=== PATIENT | male | born 1970 | race Caucasian/White ===

== ENCOUNTER 2017-05-24 14:52 | Emergency (ER) | payer MEDICARE, SELFPAY ==
[~2017-05-24] VITALS: Ht 175.3 cm; Wt 79.5 kg
[2017-05-24] MEDS ORDERED: ANTIPSYCHOTIC PO (15:04)
[2017-05-24] MEDS ORDERED: HYDROCODONE/ACETAMINOPHEN 5-325 MG TABLET PO ONE (16:30)
[2017-05-24 17:54] VITALS: BP 107/68
[2017-05-25] MEDS ORDERED: SERT100T12 PO (06:15)
[2017-05-25] MEDS ORDERED: QUET200T29 PO (06:15)
[2017-05-25] MEDS ORDERED: DIVA500T35 PO (06:17)
== END 2017-05-24 18:25 | disposition home or self-care (01) ==
LOC: EMS 14:54
DX: S43.402A Unspecified sprain of left shoulder joint, initial encounter (principal); J45.909 Unspecified asthma, uncomplicated; F17.210 Nicotine dependence, cigarettes, uncomplicated; Y04.2XXA Assault by strike against or bumped into by another person, initial encounter; Y93.89 Activity, other specified; Y92.89 Other specified places as the place of occurrence of the external cause; Y99.8 Other external cause status
CPT/HCPCS: 99284

== ENCOUNTER 2017-05-25 05:54 | Inpatient (IN) | payer MEDICARE ==
[~2017-05-25] VITALS: Ht 175.3 cm; Wt 74.5 kg
[~2017-05-25 05:54] MED LIST: ANTIPSYCHOTIC PO
[2017-05-25] MEDS ORDERED: QUET200T29 PO (06:15)
[2017-05-25] MEDS ORDERED: SERT100T12 PO (06:15)
[2017-05-25] MEDS ORDERED: DIVA500T35 PO (06:17)
[2017-05-25 06:59] LABS: BASOPHILS % (AUTO) 0.5 % (0.0-2.0); EOSINOPHILS % (AUTO) 4.2 % (1.0-6.0); HEMATOCRIT 42.3 % (41-53); HEMOGLOBIN 14.4 g/dL (13.5-17.5); LYMPHOCYTES # (AUTO) 2.6 K/uL (1.0-4.8); LYMPHOCYTES % (AUTO) 31.4 % (22.0-44.0); MEAN CORPUSCULAR HEMOGLOBIN 31.1 pg (26.0-34.0); MEAN CORPUSCULAR VOLUME 92 fL (80-100); MONOCYTES # (AUTO) 0.6 K/uL (0.1-1.0); MONOCYTES % (AUTO) 6.9 % (2.0-9.0); NEUTROPHILS # (AUTO) 4.7 K/uL (1.8-7.7); PLATELET COUNT (AUTO) 232 K/uL (150-450); RED BLOOD CELL COUNT(AUTO) 4.61 MIL/uL (4.50-5.90); RED CELL DISTRIBUTION WIDTH 13.1 % (11.5-14.5); WHITE BLOOD COUNT (AUTO) 8.3 K/uL (4.5-11.0)
[2017-05-25 07:14] LABS: ANION GAP 7 mmol/L (8-16); CARBON DIOXIDE 29 mmol/L (22-29); CHLORIDE 108 mmol/L (98-107); CREATININE 0.98 mg/dL (0.60-1.30); GLOMERULAR FILTR. RATE CALC > 60 mL/min (>60); POTASSIUM 4.5 mmol/L (3.5-5.1); SODIUM SERUM 144 mmol/L (136-145); UREA NITROGEN, BLOOD 18 mg/dL (7-18)
[2017-05-25 07:21] LABS: ALANINE AMINOTRANSFERASE 22 U/L (12-78); ALBUMIN 4.1 g/dL (3.4-5.0); ASPARTATE AMINOTRANSFERASE 12 U/L (15-37); BILIRUBIN,TOTAL 0.7 mg/dL (0.1-1.0); TOTAL PROTEIN, SERUM 7.3 g/dL (6.4-8.2); VALPROIC ACID < 3 mcg/mL (50-100)
[2017-05-25] MEDS ORDERED: ZOLPIDEM TARTRATE 10 MG TABLET PO PRN (10:00)
[2017-05-25 15:06] VITALS: BP 111/59
[2017-05-25 16:00] VITALS: BP 100/55
[2017-05-25 16:14] VITALS: BP 100/55
[2017-05-25] MEDS ORDERED: DENTURE ADHESIVE 68 GM CREAM DT PRN (20:00)
[2017-05-25 21:10] VITALS: BP 102/55
[2017-05-26] VITALS (7 sets, daily range): BP systolic 96–107; BP diastolic 57–65
[2017-05-26 08:53] LABS: CHOL/HDL RATIO 3.9 (4.2-7.3)
[2017-05-26] MEDS ORDERED: BACITRACIN 28.4 GM OINTMENT TP PRN (09:00)
[2017-05-26] MEDS ORDERED: LOPERAMIDE HCL 2 MG CAPSULE PO PRN (09:00)
[2017-05-26] MEDS ORDERED: PETROLATUM,WHITE 71 GM JELLY TP PRN (09:00)
[2017-05-26] MEDS ORDERED: ACETAMINOPHEN 325 MG TABLET PO PRN (09:00)
[2017-05-26] MEDS ORDERED: ALBUTEROL SULFATE HFA 90 MCG/PUFF 8 GM INHALER IH PRN (09:00)
[2017-05-26] MEDS ORDERED: ONDANSETRON HCL 4 MG TABLET PO PRN (09:00)
[2017-05-26] MEDS ORDERED: MAGNESIUM HYDROXIDE SUSPENSION 30 ML UDCUP PO PRN (09:00)
[2017-05-26] MEDS ORDERED: CloNIDine HCL 0.1 MG TABLET PO PRN (09:00)
[2017-05-26] MEDS ORDERED: MAG HYDROX/AL HYDROX/SIMETH ES 30 ML SUSPENSION UDCUP PO PRN (09:00)
[2017-05-26] MEDS ORDERED: BENZOCAINE/MENTHOL LOZENGE MM PRN (09:00)
[2017-05-26] MEDS: DIVALPROEX SODIUM 500 MG DR TABLET PO SCH (17:01)
[2017-05-26] MEDS: QUEtiapine FUMARATE 200 MG TABLET PO SCH (20:20)
[2017-05-27] VITALS (7 sets, daily range): BP systolic 99–106; BP diastolic 61–70
[2017-05-27] MEDS: DIVALPROEX SODIUM 500 MG DR TABLET PO SCH ×2 (09:14→16:38)
[2017-05-27] MEDS: SERTRALINE HCL 100 MG TABLET PO SCH (09:14)
[2017-05-27] MEDS: LORazepam 2 MG TABLET PO PRN (13:55)
[2017-05-27] MEDS: IBUPROFEN 600 MG TABLET PO PRN (13:55)
[2017-05-27] MEDS: HALOPERIDOL 5 MG TABLET PO PRN (13:55)
[2017-05-27] MEDS: QUEtiapine FUMARATE 200 MG TABLET PO SCH (20:40)
[2017-05-28] VITALS (12 sets, daily range): BP systolic 94–117; BP diastolic 50–71
[2017-05-28] MEDS: DIVALPROEX SODIUM 500 MG DR TABLET PO SCH ×2 (09:15→16:47)
[2017-05-28] MEDS: SERTRALINE HCL 100 MG TABLET PO SCH (09:15)
[2017-05-28] MEDS: HALOPERIDOL 5 MG TABLET PO PRN (13:10)
[2017-05-28] MEDS: LORazepam 2 MG TABLET PO PRN (13:10)
[2017-05-28] MEDS: QUEtiapine FUMARATE 200 MG TABLET PO SCH (20:41)
[2017-05-29 03:05] VITALS: BP 102/68
[2017-05-29 07:14] VITALS: BP 101/62
[2017-05-29 08:00] VITALS: BP 101/55
[2017-05-29 08:17] VITALS: BP 101/55
[2017-05-29] MEDS: DIVALPROEX SODIUM 500 MG DR TABLET PO SCH ×2 (08:43→16:33)
[2017-05-29] MEDS: SERTRALINE HCL 100 MG TABLET PO SCH (08:43)
[2017-05-29 16:19] VITALS: BP 106/66
[2017-05-29] MEDS: QUEtiapine FUMARATE 200 MG TABLET PO SCH (20:04)
[2017-05-29 20:54] VITALS: BP 104/68
[2017-05-29] MEDS: IBUPROFEN 600 MG TABLET PO PRN (20:56)
[2017-05-30 02:00] VITALS: BP 102/3
[2017-05-30 06:00] VITALS: BP 100/60
[2017-05-30] MEDS ORDERED: LORazepam 2 MG/ML VIAL ONE (08:14)
[2017-05-30] MEDS ORDERED: DiphenhydrAMINE HCL 50 MG/ML VIAL ONE (08:14)
[2017-05-30] MEDS ORDERED: HALOPERIDOL LACTATE 5 MG/ML VIAL ONE (08:14)
[2017-05-30] MEDS ORDERED: LORazepam 2 MG/ML VIAL IM ONE (08:15)
[2017-05-30] MEDS ORDERED: HALOPERIDOL LACTATE 5 MG/ML VIAL IM ONE (08:15)
[2017-05-30] MEDS ORDERED: DiphenhydrAMINE HCL 50 MG/ML VIAL IM ONE (08:15)
[2017-05-30 08:35] VITALS: BP 108/60
[2017-05-30] MEDS: SERTRALINE HCL 100 MG TABLET PO SCH (09:13)
[2017-05-30] MEDS: DIVALPROEX SODIUM 500 MG DR TABLET PO SCH ×2 (09:13→16:50)
[2017-05-30 10:24] VITALS: BP 106/84
[2017-05-30 16:24] VITALS: BP 107/66
[2017-05-30] MEDS ORDERED: QUEtiapine FUMARATE 200 MG TABLET PO SCH (17:00)
[2017-05-30] MEDS: QUEtiapine FUMARATE 200 MG TABLET PO SCH (20:38)
[2017-05-31 01:05] VITALS: BP 99/63
[2017-05-31 08:19] VITALS: BP 116/60
[2017-05-31] MEDS: SERTRALINE HCL 100 MG TABLET PO SCH (09:04)
[2017-05-31] MEDS: DIVALPROEX SODIUM 500 MG DR TABLET PO SCH ×2 (09:04→16:42)
[2017-05-31] MEDS: QUEtiapine FUMARATE 200 MG TABLET PO SCH ×2 (09:04→20:35)
[2017-05-31 16:13] VITALS: BP 102/61
[2017-06-01 01:33] VITALS: BP 105/64
[2017-06-01 08:21] VITALS: BP 112/72
[2017-06-01] MEDS: QUEtiapine FUMARATE 200 MG TABLET PO SCH (08:49)
[2017-06-01] MEDS: DIVALPROEX SODIUM 500 MG DR TABLET PO SCH ×2 (08:49→16:32)
[2017-06-01] MEDS: SERTRALINE HCL 100 MG TABLET PO SCH (08:49)
[2017-06-01] MEDS ORDERED: SERT100T12 PO (15:59)
[2017-06-01] MEDS ORDERED: DIVA500T35 PO (15:59)
[2017-06-01] MEDS ORDERED: QUET200T PO (16:03)
== END 2017-06-01 17:15 | disposition home or self-care (01) | DRG 885 ==
LOC: EMS 05:55 → B2X 12:18
DX: F25.0 Schizoaffective disorder, bipolar type (principal); R45.851 Suicidal ideations; R00.1 Bradycardia, unspecified; F32.9 Major depressive disorder, single episode, unspecified; J45.909 Unspecified asthma, uncomplicated; R51 Headache; F17.210 Nicotine dependence, cigarettes, uncomplicated; F41.9 Anxiety disorder, unspecified; M54.9 Dorsalgia, unspecified; G47.00 Insomnia, unspecified; K59.00 Constipation, unspecified; Z71.6 Tobacco abuse counseling; Z79.899 Other long term (current) drug therapy
CPT/HCPCS: 87081; 99285; G0480; J1200; J1630; J2060

== ENCOUNTER 2018-03-22 14:14 | Emergency (ER) | payer MEDICARE, MEDICAID ==
[~2018-03-22] VITALS: Ht 177.8 cm; Wt 79.5 kg
[~2018-03-22 14:14] MED LIST changes: -ANTIPSYCHOTIC PO; +DIVA500T35 PO; +QUET200T PO; +SERT100T12 PO
[2018-03-22 15:43] VITALS: BP 102/62
== END 2018-03-22 15:45 | disposition home or self-care (01) ==
LOC: EMS 14:16
DX: M79.672 Pain in left foot (principal); M25.472 Effusion, left ankle; R44.0 Auditory hallucinations; F17.210 Nicotine dependence, cigarettes, uncomplicated; F32.9 Major depressive disorder, single episode, unspecified; F20.9 Schizophrenia, unspecified; F12.90 Cannabis use, unspecified, uncomplicated; J45.909 Unspecified asthma, uncomplicated
CPT/HCPCS: 99284; 99406

== ENCOUNTER 2018-05-02 10:31 | Inpatient (IN) | payer MEDICARE, MEDICAID ==
[~2018-05-02] VITALS: Ht 177.8 cm; Wt 64.9 kg
[~2018-05-02 10:31] MED LIST changes: +DIVA-78 PO; -DIVA500T35 PO
[2018-05-02 12:04] LABS: BASOPHILS % (AUTO) 0.4 % (0.0-2.0); EOSINOPHILS % (AUTO) 0.8 % (1.0-6.0); HEMATOCRIT 36.6 % (41-53); HEMOGLOBIN 12.7 g/dL (13.5-17.5); LYMPHOCYTES # (AUTO) 1.6 K/uL (1.0-4.8); LYMPHOCYTES % (AUTO) 16.2 % (22.0-44.0); MEAN CORPUSCULAR HEMOGLOBIN 31.2 pg (26.0-34.0); MEAN CORPUSCULAR HGB CONC 34.7 G/dL (31.0-37.0); MEAN CORPUSCULAR VOLUME 90 fL (80-100); MONOCYTES # (AUTO) 0.8 K/uL (0.1-1.0); MONOCYTES % (AUTO) 8.1 % (2.0-9.0); NEUTROPHILS # (AUTO) 7.3 K/uL (1.8-7.7); NEUTROPHILS % (AUTO) 74.5 % (40.0-70.0); PLATELET COUNT (AUTO) 229 K/uL (150-450); RED BLOOD CELL COUNT(AUTO) 4.06 MIL/uL (4.50-5.90); RED CELL DISTRIBUTION WIDTH 13.3 % (11.5-14.5)
[2018-05-02 12:19] LABS: AMPHET/METH SCREEN,URINE NEGATIVE (NEGATIVE); BARBITURATE SCREEN, URINE NEGATIVE (NEGATIVE); BENZODIAZEPINES SCREEN,URINE NEGATIVE (NEGATIVE); CANNABINOID SCREEN,URINE POSITIVE (NEGATIVE); COCAINE SCREEN,URINE NEGATIVE (NEGATIVE); METHADONE SCREEN, URINE NEGATIVE (NEGATIVE); OPIATE SCREEN,URINE NEGATIVE (NEGATIVE)
[2018-05-02 12:20] LABS: PHENCYCLIDINE SCREEN,URINE NEGATIVE (NEGATIVE)
[2018-05-02 12:23] LABS: ALANINE AMINOTRANSFERASE 22 U/L (12-78); ALBUMIN 3.3 g/dL (3.4-5.0); ALKALINE PHOSPHATASE 73 U/L (46-116); ASPARTATE AMINOTRANSFERASE 20 U/L (15-37); BILIRUBIN,TOTAL 0.8 mg/dL (0.1-1.0); CALCIUM, TOTAL 8.7 mg/dL (8.8-10.5); CHLORIDE 104 mmol/L (98-107); CREATININE 0.84 mg/dL (0.60-1.30); GLOMERULAR FILTR. RATE CALC > 60 mL/min (>60); GLUCOSE,RANDOM 111 mg/dL (70-110); POTASSIUM 3.2 mmol/L (3.5-5.1); SODIUM SERUM 138 mmol/L (136-145); TOTAL PROTEIN, SERUM 6.6 g/dL (6.4-8.2); UREA NITROGEN, BLOOD 13 mg/dL (7-18)
[2018-05-02 12:28] LABS: ANION GAP 8 mmol/L (8-16); CARBON DIOXIDE 26 mmol/L (22-29)
[2018-05-02] MEDS ORDERED: IBUPROFEN 400 MG TABLET PO PRN (13:00)
[2018-05-02] MEDS ORDERED: ZOLPIDEM TARTRATE 10 MG TABLET PO PRN (13:00)
[2018-05-02] MEDS ORDERED: ACETAMINOPHEN 325 MG TABLET PO PRN (13:00)
[2018-05-02] MEDS ORDERED: POTASSIUM CHLORIDE 20 MEQ ER TABLET PO ONE (13:30)
[2018-05-02 13:34] LABS: BILIRUBIN,URINE NEGATIVE (NEGATIVE); GLUCOSE, URINE (UA) NEGATIVE (NEGATIVE); KETONES,URINE 15 mg/dL (NEGATIVE); LEUKOCYTE ESTERASE ,URINE NEGATIVE (NEGATIVE); NITRATE,URINE NEGATIVE (NEGATIVE); OCCULT BLOOD,URINE NEGATIVE (NEGATIVE); PH,URINE 5.5 (5.0-8.0); PROTEIN,URINE NEGATIVE (NEGATIVE); UROBILINOGEN,URINE 0.2 mg/dL (<=1.0)
[2018-05-02 13:39] LABS: APPEARANCE,URINE HAZY (CLEAR)
[2018-05-02] MEDS ORDERED: DENTURE ADHESIVE 68 GM CREAM DT PRN (16:15)
[2018-05-02 16:18] VITALS: BP 123/66
[2018-05-02] MEDS: HYDROCORTISONE 1% 30 GM OINTMENT TP SCH (21:55)
[2018-05-03] MEDS ORDERED: PNEUMOCOCCAL VACCINE POLYVALENT 0.5 ML VIAL [PPSV23] IM ONE (06:00)
[2018-05-03 06:15] VITALS: BP 115/60
[2018-05-03] MEDS: LORazepam 2 MG TABLET PO PRN (07:01)
[2018-05-03] MEDS: HALOPERIDOL 5 MG TABLET PO PRN (07:01)
[2018-05-03] MEDS ORDERED: ACETAMINOPHEN 325 MG TABLET PO PRN (07:15)
[2018-05-03] MEDS ORDERED: CloNIDine HCL 0.1 MG TABLET PO PRN (07:15)
[2018-05-03] MEDS ORDERED: LOPERAMIDE HCL 2 MG CAPSULE PO PRN (07:15)
[2018-05-03] MEDS ORDERED: MAG HYDROX/AL HYDROX/SIMETH ES 30 ML SUSPENSION UDCUP PO PRN (07:15)
[2018-05-03] MEDS ORDERED: ONDANSETRON HCL 4 MG TABLET PO PRN (07:15)
[2018-05-03] MEDS ORDERED: ALBUTEROL SULFATE HFA 90 MCG/PUFF 8 GM INHALER IH PRN (07:15)
[2018-05-03] MEDS ORDERED: DOCUSATE SODIUM 100 MG CAPSULE PO PRN (07:15)
[2018-05-03] MEDS ORDERED: PETROLATUM,WHITE 71 GM JELLY TP PRN (07:15)
[2018-05-03] MEDS ORDERED: IBUPROFEN 400 MG TABLET PO PRN (07:15)
[2018-05-03] MEDS ORDERED: GuaiFENesin/D-METHORPHAN [SUGAR-FREE] 200-20MG/10 ML SYRUP UDCUP PO PRN (07:15)
[2018-05-03] MEDS ORDERED: NICOTINE 14 MG/24 HOUR PATCH TD PRN (07:15)
[2018-05-03] MEDS ORDERED: MAGNESIUM HYDROXIDE SUSPENSION 30 ML UDCUP PO PRN (07:15)
[2018-05-03 08:16] VITALS: BP 136/75
[2018-05-03 08:22] LABS: BASOPHILS % (AUTO) 0.7 % (0.0-2.0); EOSINOPHILS % (AUTO) 2.6 % (1.0-6.0); HEMATOCRIT 36.8 % (41-53); HEMOGLOBIN 12.6 g/dL (13.5-17.5); LYMPHOCYTES % (AUTO) 32.2 % (22.0-44.0); MEAN CORPUSCULAR HGB CONC 34.2 G/dL (31.0-37.0); MEAN CORPUSCULAR VOLUME 91 fL (80-100); MONOCYTES # (AUTO) 0.6 K/uL (0.1-1.0); MONOCYTES % (AUTO) 6.6 % (2.0-9.0); NEUTROPHILS # (AUTO) 5.4 K/uL (1.8-7.7); NEUTROPHILS % (AUTO) 57.9 % (40.0-70.0); PLATELET COUNT (AUTO) 234 K/uL (150-450); RED BLOOD CELL COUNT(AUTO) 4.06 MIL/uL (4.50-5.90); RED CELL DISTRIBUTION WIDTH 14.5 % (11.5-14.5)
[2018-05-03 08:40] LABS: HEMOGLOBIN A1C 7.6 % (4.5-6.2)
[2018-05-03 09:00] LABS: ALANINE AMINOTRANSFERASE 23 U/L (12-78); ALBUMIN 3.3 g/dL (3.4-5.0); ALKALINE PHOSPHATASE 93 U/L (46-116); ANION GAP -1 mmol/L (8-16); ASPARTATE AMINOTRANSFERASE 14 U/L (15-37); BILIRUBIN,TOTAL 0.2 mg/dL (0.1-1.0); CALCIUM, TOTAL 8.7 mg/dL (8.8-10.5); CARBON DIOXIDE 31 mmol/L (22-29); CHLORIDE 102 mmol/L (98-107); CHOL/HDL RATIO 3.6 (4.2-7.3); CHOLESTEROL 151 mg/dL (131-200); CREATININE 0.71 mg/dL (0.60-1.30); GLOMERULAR FILTR. RATE CALC > 60 mL/min (>60); GLUCOSE,RANDOM 95 mg/dL (70-110); HDL CHOLESTEROL 42 mg/dL (40-60); LDL CHOL (CALC.) 91 mg/dL (0-130); POTASSIUM 4.2 mmol/L (3.5-5.1); SODIUM SERUM 132 mmol/L (136-145); THYROID STIMULATING HORMONE 1.65 uIU/mL (0.36-3.74); TOTAL PROTEIN, SERUM 6.1 g/dL (6.4-8.2); TRIGLYCERIDES 92 mg/dL (15-150); UREA NITROGEN, BLOOD 16 mg/dL (7-18)
[2018-05-03] MEDS: HYDROCORTISONE 1% 30 GM OINTMENT TP SCH ×2 (09:00→17:03)
[2018-05-03 16:11] VITALS: BP 103/62
[2018-05-03 20:24] LABS: GLUCOMETER DEV NAME(LOC) BV2N3; GLUCOSE,POINT OF CARE 102 MG/DL (70-110)
[2018-05-03] MEDS: QUEtiapine FUMARATE 200 MG TABLET PO SCH (20:43)
[2018-05-03] MEDS: DIVALPROEX SODIUM 500 MG DR TABLET PO SCH (20:43)
[2018-05-04 06:15] VITALS: BP 105/60
[2018-05-04 08:35] VITALS: BP 113/60
[2018-05-04] MEDS: HYDROCORTISONE 1% 30 GM OINTMENT TP SCH ×2 (08:43→16:38)
[2018-05-04] MEDS: SERTRALINE HCL 100 MG TABLET PO SCH (08:43)
[2018-05-04] MEDS: DIVALPROEX SODIUM 500 MG DR TABLET PO SCH ×2 (08:43→20:35)
[2018-05-04] MEDS: QUEtiapine FUMARATE 200 MG TABLET PO SCH ×2 (08:43→20:35)
[2018-05-04] MEDS: LORazepam 2 MG TABLET PO PRN (09:07)
[2018-05-04] MEDS: HALOPERIDOL 5 MG TABLET PO PRN (09:07)
[2018-05-04 14:55] LABS: GLUCOMETER DEV NAME(LOC) BV2N3; GLUCOSE,POINT OF CARE 81 MG/DL (70-110)
[2018-05-04 16:23] LABS: GLUCOMETER DEV NAME(LOC) BV2N3; GLUCOSE,POINT OF CARE 85 MG/DL (70-110)
[2018-05-04 18:00] VITALS: BP 128/89
[2018-05-05 06:58] VITALS: BP 100/60
[2018-05-05 07:08] LABS: GLUCOMETER DEV NAME(LOC) BV2N3; GLUCOSE,POINT OF CARE 96 MG/DL (70-110)
[2018-05-05 08:22] VITALS: BP 109/77
[2018-05-05] MEDS: QUEtiapine FUMARATE 200 MG TABLET PO SCH ×2 (08:49→20:10)
[2018-05-05] MEDS: HYDROCORTISONE 1% 30 GM OINTMENT TP SCH ×2 (08:49→16:06)
[2018-05-05] MEDS: DIVALPROEX SODIUM 500 MG DR TABLET PO SCH ×2 (08:49→20:10)
[2018-05-05] MEDS: SERTRALINE HCL 100 MG TABLET PO SCH (08:49)
[2018-05-05] MEDS: LORazepam 2 MG TABLET PO PRN ×2 (08:57→16:07)
[2018-05-05 09:47] LABS: % IRON SATURATION 13.1 % (30-44)
[2018-05-05 10:07] LABS: ANION GAP 9 mmol/L (8-16); CARBON DIOXIDE 28 mmol/L (22-29); CHLORIDE 104 mmol/L (98-107); CREATININE 0.96 mg/dL (0.60-1.30); FERRITIN 158 ng/mL (26-388); GLOMERULAR FILTR. RATE CALC > 60 mL/min (>60); GLUCOSE,RANDOM 86 mg/dL (70-110); POTASSIUM 4.5 mmol/L (3.5-5.1); SODIUM SERUM 141 mmol/L (136-145); UREA NITROGEN, BLOOD 15 mg/dL (7-18)
[2018-05-05] MEDS: HALOPERIDOL 5 MG TABLET PO PRN (16:07)
[2018-05-05 16:18] LABS: GLUCOMETER DEV NAME(LOC) BV2N3; GLUCOSE,POINT OF CARE 102 MG/DL (70-110)
[2018-05-05 16:20] VITALS: BP 110/62
[2018-05-06 02:12] VITALS: BP 106/68
[2018-05-06 08:00] VITALS: BP 108/63
[2018-05-06] MEDS: DIVALPROEX SODIUM 500 MG DR TABLET PO SCH ×2 (08:50→20:46)
[2018-05-06] MEDS: SERTRALINE HCL 100 MG TABLET PO SCH (08:50)
[2018-05-06] MEDS: HYDROCORTISONE 1% 30 GM OINTMENT TP SCH ×2 (08:50→16:31)
[2018-05-06] MEDS: QUEtiapine FUMARATE 200 MG TABLET PO SCH ×2 (08:50→20:46)
[2018-05-06 16:11] VITALS: BP 111/61
[2018-05-06 16:29] LABS: GLUCOMETER DEV NAME(LOC) BV2N3; GLUCOSE,POINT OF CARE 108 MG/DL (70-110)
[2018-05-06] MEDS: LORazepam 2 MG TABLET PO PRN (19:25)
[2018-05-07 06:14] LABS: GLUCOMETER DEV NAME(LOC) BV2N3; GLUCOSE,POINT OF CARE 95 MG/DL (70-110)
[2018-05-07 06:31] VITALS: BP 112/85
[2018-05-07 08:32] VITALS: BP 100/60
[2018-05-07] MEDS: QUEtiapine FUMARATE 200 MG TABLET PO SCH ×2 (08:51→20:41)
[2018-05-07] MEDS: SERTRALINE HCL 100 MG TABLET PO SCH (08:51)
[2018-05-07] MEDS: DIVALPROEX SODIUM 500 MG DR TABLET PO SCH ×2 (08:51→20:40)
[2018-05-07] MEDS: HYDROCORTISONE 1% 30 GM OINTMENT TP SCH ×2 (08:52→16:37)
[2018-05-07 16:28] LABS: GLUCOMETER DEV NAME(LOC) BV2N3; GLUCOSE,POINT OF CARE 120 MG/DL (70-110)
[2018-05-07 16:37] VITALS: BP 114/74
[2018-05-07] MEDS: CEPHALEXIN MONOHYDRATE 500 MG CAPSULE PO SCH (16:37)
[2018-05-08 06:38] VITALS: BP 102/57
[2018-05-08 07:28] LABS: GLUCOMETER DEV NAME(LOC) BV2N3; GLUCOSE,POINT OF CARE 88 MG/DL (70-110)
[2018-05-08] MEDS: SERTRALINE HCL 100 MG TABLET PO SCH (08:24)
[2018-05-08] MEDS: CEPHALEXIN MONOHYDRATE 500 MG CAPSULE PO SCH ×3 (08:24→16:59)
[2018-05-08] MEDS: DIVALPROEX SODIUM 500 MG DR TABLET PO SCH ×2 (08:24→20:11)
[2018-05-08] MEDS: QUEtiapine FUMARATE 200 MG TABLET PO SCH ×2 (08:24→20:11)
[2018-05-08] MEDS: HYDROCORTISONE 1% 30 GM OINTMENT TP SCH ×2 (08:25→16:59)
[2018-05-08 08:34] VITALS: BP 103/60
[2018-05-08] MEDS: LORazepam 2 MG TABLET PO PRN (08:37)
[2018-05-08 16:11] VITALS: BP 106/60
[2018-05-08 16:44] LABS: GLUCOMETER DEV NAME(LOC) BV2N3; GLUCOSE,POINT OF CARE 82 MG/DL (70-110)
[2018-05-09 06:14] LABS: GLUCOMETER DEV NAME(LOC) BV2N3; GLUCOSE,POINT OF CARE 80 MG/DL (70-110)
[2018-05-09 07:21] VITALS: BP 108/60
[2018-05-09] MEDS: DIVALPROEX SODIUM 500 MG DR TABLET PO SCH ×2 (08:14→20:09)
[2018-05-09] MEDS: SERTRALINE HCL 100 MG TABLET PO SCH (08:14)
[2018-05-09] MEDS: CEPHALEXIN MONOHYDRATE 500 MG CAPSULE PO SCH ×3 (08:14→20:09)
[2018-05-09] MEDS: HYDROCORTISONE 1% 30 GM OINTMENT TP SCH ×2 (08:14→17:00)
[2018-05-09] MEDS: QUEtiapine FUMARATE 200 MG TABLET PO SCH ×2 (08:14→20:09)
[2018-05-09 08:29] VITALS: BP 104/63
[2018-05-09] MEDS ORDERED: BACI30OI10 TP (14:09)
[2018-05-09 16:31] VITALS: BP 106/73
[2018-05-09 16:49] LABS: GLUCOMETER DEV NAME(LOC) BV2N3; GLUCOSE,POINT OF CARE 102 MG/DL (70-110)
[2018-05-09] MEDS: LORazepam 2 MG TABLET PO PRN (17:57)
[2018-05-09] MEDS ORDERED: IBUPROFEN 800 MG TABLET PO PRN (21:45)
[2018-05-10 03:45] VITALS: BP 108/68
[2018-05-10 06:48] LABS: GLUCOMETER DEV NAME(LOC) BV2N3; GLUCOSE,POINT OF CARE 80 MG/DL (70-110)
[2018-05-10] MEDS: SERTRALINE HCL 100 MG TABLET PO SCH (09:22)
[2018-05-10] MEDS: DIVALPROEX SODIUM 500 MG DR TABLET PO SCH ×2 (09:22→20:32)
[2018-05-10] MEDS: SULFAMETHOX/TRIMETH DS 800-160 MG/TABLET PO SCH ×2 (09:22→16:33)
[2018-05-10] MEDS: QUEtiapine FUMARATE 200 MG TABLET PO SCH ×2 (09:22→20:32)
[2018-05-10] MEDS: CEPHALEXIN MONOHYDRATE 500 MG CAPSULE PO SCH ×4 (09:22→20:32)
[2018-05-10] MEDS: HYDROCORTISONE 1% 30 GM OINTMENT TP SCH ×2 (09:23→16:34)
[2018-05-10 10:09] VITALS: BP 108/68
[2018-05-10 16:34] VITALS: BP 113/68
[2018-05-10 17:08] LABS: GLUCOMETER DEV NAME(LOC) BV2N3; GLUCOSE,POINT OF CARE 103 MG/DL (70-110)
[2018-05-11 01:45] VITALS: BP 114/66
[2018-05-11] MEDS: LORazepam 2 MG TABLET PO PRN (01:53)
[2018-05-11 07:04] LABS: GLUCOMETER DEV NAME(LOC) BV2N3; GLUCOSE,POINT OF CARE 105 MG/DL (70-110)
[2018-05-11 08:45] VITALS: BP 103/68
[2018-05-11] MEDS: SULFAMETHOX/TRIMETH DS 800-160 MG/TABLET PO SCH ×2 (09:02→16:35)
[2018-05-11] MEDS: SERTRALINE HCL 100 MG TABLET PO SCH (09:03)
[2018-05-11] MEDS: CEPHALEXIN MONOHYDRATE 500 MG CAPSULE PO SCH ×4 (09:04→20:33)
[2018-05-11] MEDS: DIVALPROEX SODIUM 500 MG DR TABLET PO SCH ×2 (09:04→20:33)
[2018-05-11] MEDS: HYDROCORTISONE 1% 30 GM OINTMENT TP SCH ×2 (09:04→16:35)
[2018-05-11] MEDS: QUEtiapine FUMARATE 200 MG TABLET PO SCH ×2 (09:04→20:33)
[2018-05-11 16:09] VITALS: BP 103/63
[2018-05-11] MEDS ORDERED: PNEUMOCOCCAL VACCINE POLYVALENT 0.5 ML VIAL [PPSV23] IM ONE ×2 (21:00→21:30)
[2018-05-12 04:25] VITALS: BP 112/68
[2018-05-12] MEDS: LORazepam 2 MG TABLET PO PRN (04:32)
[2018-05-12 06:53] LABS: GLUCOMETER DEV NAME(LOC) BV2N3; GLUCOSE,POINT OF CARE 77 MG/DL (70-110)
[2018-05-12 08:37] VITALS: BP 102/60
[2018-05-12] MEDS: DIVALPROEX SODIUM 500 MG DR TABLET PO SCH ×2 (08:45→20:37)
[2018-05-12] MEDS: SULFAMETHOX/TRIMETH DS 800-160 MG/TABLET PO SCH ×2 (08:46→17:11)
[2018-05-12] MEDS: SERTRALINE HCL 100 MG TABLET PO SCH (08:46)
[2018-05-12] MEDS: QUEtiapine FUMARATE 200 MG TABLET PO SCH ×2 (08:46→20:36)
[2018-05-12] MEDS: CEPHALEXIN MONOHYDRATE 500 MG CAPSULE PO SCH ×4 (08:46→20:37)
[2018-05-12] MEDS: NEOMYCIN/BACITRACIN/POLYMYXIN B 30 GM OINTMENT TP SCH (08:47)
[2018-05-12] MEDS: HYDROCORTISONE 1% 30 GM OINTMENT TP SCH ×2 (08:47→16:39)
[2018-05-12 16:07] VITALS: BP 108/62
[2018-05-12 16:19] LABS: GLUCOMETER DEV NAME(LOC) BV2N3; GLUCOSE,POINT OF CARE 90 MG/DL (70-110)
[2018-05-13 03:57] VITALS: BP 101/59
[2018-05-13] MEDS: LORazepam 2 MG TABLET PO PRN (04:09)
[2018-05-13 06:48] LABS: GLUCOMETER DEV NAME(LOC) BV2N3; GLUCOSE,POINT OF CARE 84 MG/DL (70-110)
[2018-05-13 08:15] VITALS: BP 104/60
[2018-05-13] MEDS: CEPHALEXIN MONOHYDRATE 500 MG CAPSULE PO SCH (08:21)
[2018-05-13] MEDS: QUEtiapine FUMARATE 200 MG TABLET PO SCH (08:21)
[2018-05-13] MEDS: DIVALPROEX SODIUM 500 MG DR TABLET PO SCH (08:21)
[2018-05-13] MEDS: SULFAMETHOX/TRIMETH DS 800-160 MG/TABLET PO SCH (08:22)
[2018-05-13] MEDS: SERTRALINE HCL 100 MG TABLET PO SCH (08:22)
[2018-05-13] MEDS: HYDROCORTISONE 1% 30 GM OINTMENT TP SCH (08:23)
[2018-05-13] MEDS: NEOMYCIN/BACITRACIN/POLYMYXIN B 30 GM OINTMENT TP SCH (08:23)
[2018-05-13] MEDS ORDERED: CEPH500 PO (10:35)
[2018-05-13] MEDS ORDERED: SULF1TAB42 PO (10:40)
== END 2018-05-13 11:00 | disposition home or self-care (01) | DRG 885 ==
LOC: EMS 10:34 → B2X 13:43
PROC: 3E0234Z Introduction of Serum, Toxoid and Vaccine into Muscle, Percutaneous Approach (ICD-10-PCS; principal; 2018-05-11)
DX: F25.0 Schizoaffective disorder, bipolar type (principal); E87.1 Hypo-osmolality and hyponatremia; L03.313 Cellulitis of chest wall; L02.213 Cutaneous abscess of chest wall; R45.851 Suicidal ideations; D50.9 Iron deficiency anemia, unspecified; F60.9 Personality disorder, unspecified; G47.00 Insomnia, unspecified; I10 Essential (primary) hypertension; F32.9 Major depressive disorder, single episode, unspecified; F12.20 Cannabis dependence, uncomplicated; F17.210 Nicotine dependence, cigarettes, uncomplicated; M54.9 Dorsalgia, unspecified; R51 Headache; J45.909 Unspecified asthma, uncomplicated; K59.00 Constipation, unspecified; R73.03 Prediabetes; Z59.0 Homelessness; Z91.5 Personal history of self-harm; Z23 Encounter for immunization; Z79.899 Other long term (current) drug therapy; Z71.6 Tobacco abuse counseling
CPT/HCPCS: 82728; 83036; 83540; 83550; 84443; 90471; 99285; G0480; Q0162

== ENCOUNTER 2018-05-09 13:49 | Emergency (ER) | payer MEDICARE, MEDICAID ==
[~2018-05-09] VITALS: Ht 177.8 cm; Wt 67.3 kg
[2018-05-09] MEDS ORDERED: BACI30OI10 TP (14:09)
[2018-05-09 14:14] LABS: GLUCOSE,POINT OF CARE 107 MG/DL (70-110)
[2018-05-09] MEDS ORDERED: POVIDONE-IODINE 10% 15 ML SOLUTION UD TP ONE (14:15)
[2018-05-09] MEDS ORDERED: ACETAMINOPHEN 500 MG TABLET PO ONE (14:15)
[2018-05-09] MEDS ORDERED: BUPIVACAINE HCL/PF 0.25% 10 ML VIAL INJ ONE (14:15)
[2018-05-09] MEDS ORDERED: CEPHALEXIN MONOHYDRATE 500 MG CAPSULE PO ONE (14:45)
[2018-05-09] MEDS ORDERED: SULFAMETHOX/TRIMETH DS 800-160 MG/TABLET PO ONE (14:45)
[2018-05-09 16:00] VITALS: BP 119/65
== END 2018-05-09 16:03 | disposition home or self-care (01) ==
LOC: EMS 13:51
DX: L02.213 Cutaneous abscess of chest wall (principal); L03.313 Cellulitis of chest wall; F20.9 Schizophrenia, unspecified; F32.9 Major depressive disorder, single episode, unspecified; J45.909 Unspecified asthma, uncomplicated; F17.210 Nicotine dependence, cigarettes, uncomplicated; F12.90 Cannabis use, unspecified, uncomplicated
CPT/HCPCS: 10060; 82962; 99284; 99406; J3490

== ENCOUNTER 2018-12-01 23:01 | Emergency (ER) | payer MEDICARE, OTHER ==
[~2018-12-01] VITALS: Ht 175.3 cm; Wt 79.5 kg
[~2018-12-01 23:01] MED LIST changes: +CEPH500 PO; +SULF1TAB42 PO
[2018-12-02 02:59] VITALS: BP 125/78
[2018-12-02] MEDS ORDERED: NAPROXEN 250 MG TABLET PO ONE (03:00)
== END 2018-12-02 03:35 | disposition home or self-care (01) ==
LOC: EMS 23:02
DX: M25.512 Pain in left shoulder (principal); F32.9 Major depressive disorder, single episode, unspecified; F20.9 Schizophrenia, unspecified; F12.90 Cannabis use, unspecified, uncomplicated; F17.210 Nicotine dependence, cigarettes, uncomplicated; Z59.0 Homelessness; Z79.899 Other long term (current) drug therapy; J45.909 Unspecified asthma, uncomplicated

== ENCOUNTER 2019-01-01 02:44 | Emergency (ER) | payer MEDICARE, OTHER ==
[~2019-01-01] VITALS: Ht 175.3 cm; Wt 79.5 kg
[~2019-01-01 02:44] MED LIST changes: -CEPH500 PO; -SULF1TAB42 PO
[2019-01-01 02:49] VITALS: BP 125/71
== END 2019-01-01 04:00 | disposition left against medical advice (07) ==
LOC: EMS 02:44
DX: R10.9 Unspecified abdominal pain (principal); J45.909 Unspecified asthma, uncomplicated; F32.9 Major depressive disorder, single episode, unspecified; F20.9 Schizophrenia, unspecified; Z53.21 Procedure and treatment not carried out due to patient leaving prior to being seen by health care provider

== ENCOUNTER 2019-01-30 22:43 | Emergency (ER) | payer MEDICARE, OTHER ==
[~2019-01-30] VITALS: Ht 175.3 cm; Wt 63.6 kg
[2019-01-31 01:25] VITALS: BP 124/73
== END 2019-01-31 01:49 | disposition home or self-care (01) ==
LOC: EMS 22:43
DX: L02.11 Cutaneous abscess of neck (principal); F17.210 Nicotine dependence, cigarettes, uncomplicated; F31.9 Bipolar disorder, unspecified; F20.9 Schizophrenia, unspecified; J45.909 Unspecified asthma, uncomplicated; F12.90 Cannabis use, unspecified, uncomplicated; Z88.6 Allergy status to analgesic agent
CPT/HCPCS: 99406

== ENCOUNTER 2019-10-17 19:05 | Emergency (ER) | payer MEDICARE ==
[~2019-10-17] VITALS: Ht 172.7 cm; Wt 75.0 kg
[2019-10-17 20:25] LABS: BASOPHILS % (AUTO) 0.6 % (0.0-2.0); EOSINOPHILS % (AUTO) 2.3 % (1.0-6.0); HEMATOCRIT 40.7 % (41-53); HEMOGLOBIN 13.4 g/dL (13.5-17.5); LYMPHOCYTES # (AUTO) 2.8 K/uL (1.0-4.8); LYMPHOCYTES % (AUTO) 24.9 % (22.0-44.0); MEAN CORPUSCULAR HEMOGLOBIN 30.1 pg (26.0-34.0); MEAN CORPUSCULAR HGB CONC 32.9 G/dL (31.0-37.0); MEAN CORPUSCULAR VOLUME 92 fL (80-100); MONOCYTES # (AUTO) 0.8 K/uL (0.1-1.0); MONOCYTES % (AUTO) 7.2 % (2.0-9.0); NEUTROPHILS # (AUTO) 7.2 K/uL (1.8-7.7); PLATELET COUNT (AUTO) 236 K/uL (150-450); RED BLOOD CELL COUNT(AUTO) 4.43 MIL/uL (4.50-5.90); RED CELL DISTRIBUTION WIDTH 13.2 % (11.5-14.5)
[2019-10-17 20:36] LABS: ANION GAP 10 mmol/L (8-16); CARBON DIOXIDE 27 mmol/L (22-29); CHLORIDE 105 mmol/L (98-107); CREATININE 0.97 mg/dL (0.60-1.30); GLOMERULAR FILTR. RATE CALC > 60 mL/min (>60); GLUCOSE,RANDOM 87 mg/dL (70-110); POTASSIUM 3.9 mmol/L (3.5-5.1); SODIUM SERUM 142 mmol/L (136-145); UREA NITROGEN, BLOOD 20 mg/dL (7-18)
[2019-10-17 20:43] LABS: ALANINE AMINOTRANSFERASE 23 U/L (12-78); ALBUMIN 3.6 g/dL (3.4-5.0); ALKALINE PHOSPHATASE 85 U/L (46-116); ASPARTATE AMINOTRANSFERASE 17 U/L (15-37); BILIRUBIN,TOTAL 0.3 mg/dL (0.1-1.0); TOTAL PROTEIN, SERUM 7.3 g/dL (6.4-8.2)
[2019-10-17 21:04] LABS: AMPHET/METH SCREEN,URINE NEGATIVE (NEGATIVE); BARBITURATE SCREEN, URINE NEGATIVE (NEGATIVE); BENZODIAZEPINES SCREEN,URINE NEGATIVE (NEGATIVE); CANNABINOID SCREEN,URINE POSITIVE (NEGATIVE); COCAINE SCREEN,URINE NEGATIVE (NEGATIVE); METHADONE SCREEN, URINE NEGATIVE (NEGATIVE); OPIATE SCREEN,URINE NEGATIVE (NEGATIVE)
[2019-10-17 21:05] LABS: PHENCYCLIDINE SCREEN,URINE NEGATIVE (NEGATIVE)
[2019-10-17 21:46] VITALS: BP 128/74
[2019-10-17] MEDS ORDERED: LIDOCAINE 1% 10 ML VIAL INJ ONE (22:15)
[2019-10-17] MEDS ORDERED: KETOROLAC TROMETHAMINE 30 MG/ML VIAL IM ONE (22:15)
== END 2019-10-17 23:30 | disposition home or self-care (01) ==
LOC: EMS 19:06
DX: L02.31 Cutaneous abscess of buttock (principal); L02.512 Cutaneous abscess of left hand; J45.909 Unspecified asthma, uncomplicated; F31.9 Bipolar disorder, unspecified; F20.9 Schizophrenia, unspecified; F17.210 Nicotine dependence, cigarettes, uncomplicated; F12.90 Cannabis use, unspecified, uncomplicated; Z88.6 Allergy status to analgesic agent
CPT/HCPCS: 10060; 36415; 80053; 80307; 85025; 96372; 99283; G0480; J1885; J3490

== ENCOUNTER 2019-10-21 22:35 | Emergency (ER) | payer MEDICARE ==
[~2019-10-21] VITALS: Ht 175.3 cm; Wt 75.0 kg
[2019-10-21 22:49] VITALS: BP_DIAS 72
[2019-10-21 23:15] VITALS: BP_SYST 119
== END 2019-10-21 23:30 | disposition home or self-care (01) ==
LOC: EMS 22:38
DX: L02.519 Cutaneous abscess of unspecified hand (principal); R45.1 Restlessness and agitation; J45.909 Unspecified asthma, uncomplicated; F31.9 Bipolar disorder, unspecified; F20.9 Schizophrenia, unspecified; F17.210 Nicotine dependence, cigarettes, uncomplicated; F12.90 Cannabis use, unspecified, uncomplicated; Z88.6 Allergy status to analgesic agent

== ENCOUNTER 2020-05-06 16:04 | Emergency (ER) | payer MEDICARE ==
[~2020-05-06] VITALS: Ht 175.3 cm; Wt 75.0 kg
[2020-05-06 18:35] LABS: BASOPHILS % (AUTO) 0.6 % (0.0-2.0); EOSINOPHILS % (AUTO) 3.7 % (1.0-6.0); HEMATOCRIT 38.5 % (41-53); HEMOGLOBIN 13.1 g/dL (13.5-17.5); LYMPHOCYTES # (AUTO) 2.5 K/uL (1.0-4.8); LYMPHOCYTES % (AUTO) 39.4 % (22.0-44.0); MEAN CORPUSCULAR HEMOGLOBIN 30.9 pg (26.0-34.0); MEAN CORPUSCULAR HGB CONC 34.1 G/dL (31.0-37.0); MEAN CORPUSCULAR VOLUME 91 fL (80-100); MONOCYTES # (AUTO) 0.4 K/uL (0.1-1.0); MONOCYTES % (AUTO) 6.3 % (2.0-9.0); NEUTROPHILS # (AUTO) 3.1 K/uL (1.8-7.7); PLATELET COUNT (AUTO) 232 K/uL (150-450); RED BLOOD CELL COUNT(AUTO) 4.24 MIL/uL (4.50-5.90); RED CELL DISTRIBUTION WIDTH 13.3 % (11.5-14.5)
[2020-05-06 18:44] LABS: ANION GAP 11 mmol/L (8-16); CALCIUM, TOTAL 8.5 mg/dL (8.8-10.5); CARBON DIOXIDE 25 mmol/L (22-29); CHLORIDE 105 mmol/L (98-107); CREATININE 1.07 mg/dL (0.60-1.30); GLOMERULAR FILTR. RATE CALC > 60 mL/min (>60); GLUCOSE,RANDOM 116 mg/dL (70-110); SODIUM SERUM 141 mmol/L (136-145); UREA NITROGEN, BLOOD 14 mg/dL (7-18)
[2020-05-06 18:50] LABS: ALANINE AMINOTRANSFERASE 22 U/L (12-78); ALBUMIN 3.6 g/dL (3.4-5.0); ALKALINE PHOSPHATASE 80 U/L (46-116); ASPARTATE AMINOTRANSFERASE 16 U/L (15-37); BILIRUBIN,TOTAL 0.6 mg/dL (0.1-1.0); TOTAL PROTEIN, SERUM 7.1 g/dL (6.4-8.2)
[2020-05-06 20:09] VITALS: BP 137/68
== END 2020-05-06 20:12 | disposition home or self-care (01) ==
LOC: EMS 16:05
DX: F20.9 Schizophrenia, unspecified (principal); J45.909 Unspecified asthma, uncomplicated; F31.9 Bipolar disorder, unspecified; F17.210 Nicotine dependence, cigarettes, uncomplicated; F12.90 Cannabis use, unspecified, uncomplicated
CPT/HCPCS: 36415; 80053; 85025; 99285; G0480

== ENCOUNTER 2020-08-19 19:04 | Inpatient (IN) | payer MEDICAID, MEDICARE ==
[~2020-08-19] VITALS: Ht 175.3 cm; Wt 73.5 kg
[~2020-08-19 19:04] MED LIST changes: +CEPH-582 PO; +DIVA-112 PO; -DIVA-78 PO
[2020-08-19 20:33] LABS: BASOPHILS % (AUTO) 0.5 % (0.0-2.0); EOSINOPHILS % (AUTO) 3.8 % (1.0-6.0); HEMATOCRIT 39.8 % (41-53); HEMOGLOBIN 13.6 g/dL (13.5-17.5); LYMPHOCYTES # (AUTO) 2.6 K/uL (1.0-4.8); LYMPHOCYTES % (AUTO) 27.3 % (22.0-44.0); MEAN CORPUSCULAR HEMOGLOBIN 31.1 pg (26.0-34.0); MEAN CORPUSCULAR HGB CONC 34.1 G/dL (31.0-37.0); MEAN CORPUSCULAR VOLUME 91 fL (80-100); MONOCYTES # (AUTO) 0.6 K/uL (0.1-1.0); MONOCYTES % (AUTO) 6.8 % (2.0-9.0); NEUTROPHILS # (AUTO) 5.9 K/uL (1.8-7.7); NEUTROPHILS % (AUTO) 61.6 % (40.0-70.0); PLATELET COUNT (AUTO) 230 K/uL (150-450); RED BLOOD CELL COUNT(AUTO) 4.36 MIL/uL (4.50-5.90); RED CELL DISTRIBUTION WIDTH 13.2 % (11.5-14.5)
[2020-08-19 20:41] LABS: ANION GAP 7 mmol/L (8-16); CALCIUM, TOTAL 8.8 mg/dL (8.8-10.5); CARBON DIOXIDE 32 mmol/L (22-29); CHLORIDE 100 mmol/L (98-107); CREATININE 1.09 mg/dL (0.60-1.30); GLOMERULAR FILTR. RATE CALC > 60 mL/min (>60); GLUCOSE,RANDOM 94 mg/dL (70-110); POTASSIUM 4.3 mmol/L (3.5-5.1); SODIUM SERUM 139 mmol/L (136-145); UREA NITROGEN, BLOOD 21 mg/dL (7-18)
[2020-08-19 20:47] LABS: ALANINE AMINOTRANSFERASE 22 U/L (12-78); ALBUMIN 3.7 g/dL (3.4-5.0); ALKALINE PHOSPHATASE 76 U/L (46-116); ASPARTATE AMINOTRANSFERASE 13 U/L (15-37); BILIRUBIN,TOTAL 0.5 mg/dL (0.1-1.0); TOTAL PROTEIN, SERUM 7.3 g/dL (6.4-8.2)
[2020-08-19 20:49] LABS: VALPROIC ACID < 3 mcg/mL (50-100)
[2020-08-19] MEDS ORDERED: CEPHALEXIN MONOHYDRATE 500 MG CAPSULE PO ONE (21:45)
[2020-08-19] MEDS ORDERED: MUPIROCIN CALCIUM 2% 22 GM OINTMENT TP ONE (21:45)
[2020-08-19 22:04] LABS: AMPHET/METH SCREEN,URINE NEGATIVE (NEGATIVE); BARBITURATE SCREEN, URINE NEGATIVE (NEGATIVE); BENZODIAZEPINES SCREEN,URINE NEGATIVE (NEGATIVE); CANNABINOID SCREEN,URINE POSITIVE (NEGATIVE); COCAINE SCREEN,URINE NEGATIVE (NEGATIVE); METHADONE SCREEN, URINE NEGATIVE (NEGATIVE); OPIATE SCREEN,URINE NEGATIVE (NEGATIVE)
[2020-08-19 22:05] LABS: PHENCYCLIDINE SCREEN,URINE NEGATIVE (NEGATIVE)
[2020-08-19 22:12] LABS: COVID AG,FIA SOURCE NASOPHARYNGEAL
[2020-08-20] MEDS: LORazepam 2 MG TABLET PO PRN (00:18)
[2020-08-20] MEDS: ZOLPIDEM TARTRATE 10 MG TABLET PO PRN (00:18)
[2020-08-20] MEDS: HALOPERIDOL 5 MG TABLET PO PRN (00:19)
[2020-08-20 00:30] VITALS: BP 112/72
[2020-08-20] MEDS ORDERED: INFLUENZA VIRUS VACCINE QVS 2020-21 (6MO+)/PF 60 MCG/0.5 ML SYRINGE IM ONE (03:45)
[2020-08-20 04:24] LABS: APPEARANCE,URINE CLEAR (CLEAR); BILIRUBIN,URINE NEGATIVE (NEGATIVE); GLUCOSE, URINE (UA) NEGATIVE (NEGATIVE); KETONES,URINE NEGATIVE (NEGATIVE); LEUKOCYTE ESTERASE ,URINE NEGATIVE (NEGATIVE); NITRATE,URINE NEGATIVE (NEGATIVE); OCCULT BLOOD,URINE NEGATIVE (NEGATIVE); PROTEIN,URINE NEGATIVE (NEGATIVE); UROBILINOGEN,URINE 0.2 mg/dL (<=1.0)
[2020-08-20 07:10] LABS: CHOL/HDL RATIO 3.5 (4.2-7.3)
[2020-08-20] MEDS ORDERED: GuaiFENesin/D-METHORPHAN [SUGAR-FREE] 200-20MG/10 ML SYRUP UDCUP PO PRN (08:00)
[2020-08-20] MEDS ORDERED: NICOTINE 14 MG/24 HOUR PATCH TD PRN (08:00)
[2020-08-20] MEDS ORDERED: DOCUSATE SODIUM 100 MG CAPSULE PO PRN (08:00)
[2020-08-20] MEDS ORDERED: CloNIDine HCL 0.1 MG TABLET PO PRN (08:00)
[2020-08-20] MEDS ORDERED: ACETAMINOPHEN 325 MG TABLET PO PRN (08:00)
[2020-08-20] MEDS ORDERED: MAG HYDROX/AL HYDROX/SIMETH ES 30 ML SUSPENSION UDCUP PO PRN (08:00)
[2020-08-20] MEDS ORDERED: LOPERAMIDE HCL 2 MG CAPSULE PO PRN (08:00)
[2020-08-20] MEDS ORDERED: ONDANSETRON HCL 4 MG TABLET PO PRN (08:00)
[2020-08-20] MEDS ORDERED: PETROLATUM,WHITE 28 GM JELLY TP PRN (08:00)
[2020-08-20] MEDS ORDERED: ALBUTEROL SULFATE HFA 90 MCG/PUFF 8 GM INHALER IH PRN (08:00)
[2020-08-20] MEDS ORDERED: MAGNESIUM HYDROXIDE SUSPENSION 30 ML UDCUP PO PRN (08:00)
[2020-08-20] MEDS: MUPIROCIN CALCIUM 2% 22 GM OINTMENT TP SCH ×3 (09:02→16:51)
[2020-08-20] MEDS: CEPHALEXIN MONOHYDRATE 500 MG CAPSULE PO SCH ×3 (09:03→16:31)
[2020-08-20] MEDS: SERTRALINE HCL 100 MG TABLET PO SCH (13:27)
[2020-08-20] MEDS: QUEtiapine FUMARATE 200 MG TABLET PO SCH ×2 (13:29→20:34)
[2020-08-20] MEDS: DIVALPROEX SODIUM 500 MG DR TABLET PO SCH ×2 (13:29→20:34)
[2020-08-20 16:00] VITALS: BP 93/50
[2020-08-20 22:49] LABS: COVID AG,FIA SOURCE NASOPHARYNGEAL
[2020-08-21 09:00] VITALS: BP 108/53
[2020-08-21] MEDS: DIVALPROEX SODIUM 500 MG DR TABLET PO SCH ×2 (09:41→20:42)
[2020-08-21] MEDS: SERTRALINE HCL 100 MG TABLET PO SCH (09:42)
[2020-08-21] MEDS: QUEtiapine FUMARATE 200 MG TABLET PO SCH ×2 (09:42→20:41)
[2020-08-21] MEDS: CEPHALEXIN MONOHYDRATE 500 MG CAPSULE PO SCH ×3 (09:43→16:41)
[2020-08-21] MEDS: MUPIROCIN CALCIUM 2% 22 GM OINTMENT TP SCH ×3 (09:44→16:42)
[2020-08-21] MEDS ORDERED: DENTURE ADHESIVE 68 GM CREAM DT PRN (10:15)
[2020-08-21 16:55] VITALS: BP 97/63
[2020-08-22] MEDS: SERTRALINE HCL 100 MG TABLET PO SCH (10:14)
[2020-08-22] MEDS: QUEtiapine FUMARATE 200 MG TABLET PO SCH ×2 (10:14→20:25)
[2020-08-22] MEDS: DIVALPROEX SODIUM 500 MG DR TABLET PO SCH ×2 (10:14→20:25)
[2020-08-22] MEDS: CEPHALEXIN MONOHYDRATE 500 MG CAPSULE PO SCH ×3 (10:14→16:22)
[2020-08-22] MEDS: HALOPERIDOL 5 MG TABLET PO PRN (10:15)
[2020-08-22] MEDS: MUPIROCIN CALCIUM 2% 22 GM OINTMENT TP SCH ×3 (10:15→16:22)
[2020-08-22] MEDS: LORazepam 2 MG TABLET PO PRN (10:15)
[2020-08-22 16:05] VITALS: BP 89/55
[2020-08-23 08:00] VITALS: BP 128/77
[2020-08-23] MEDS: MUPIROCIN CALCIUM 2% 22 GM OINTMENT TP SCH ×3 (08:29→16:11)
[2020-08-23] MEDS: CEPHALEXIN MONOHYDRATE 500 MG CAPSULE PO SCH ×3 (08:29→16:11)
[2020-08-23] MEDS: SERTRALINE HCL 100 MG TABLET PO SCH (08:29)
[2020-08-23] MEDS: DIVALPROEX SODIUM 500 MG DR TABLET PO SCH ×2 (08:31→21:04)
[2020-08-23] MEDS: LORazepam 2 MG TABLET PO PRN (08:31)
[2020-08-23] MEDS: HALOPERIDOL 5 MG TABLET PO PRN (08:31)
[2020-08-23] MEDS: QUEtiapine FUMARATE 200 MG TABLET PO SCH ×2 (08:32→21:03)
[2020-08-23 19:28] VITALS: BP 116/71
[2020-08-24] MEDS: CEPHALEXIN MONOHYDRATE 500 MG CAPSULE PO SCH ×3 (09:23→16:58)
[2020-08-24] MEDS: QUEtiapine FUMARATE 200 MG TABLET PO SCH ×2 (09:23→20:08)
[2020-08-24] MEDS: DIVALPROEX SODIUM 500 MG DR TABLET PO SCH ×2 (09:23→20:08)
[2020-08-24] MEDS: MUPIROCIN CALCIUM 2% 22 GM OINTMENT TP SCH ×3 (09:23→16:57)
[2020-08-24] MEDS: SERTRALINE HCL 100 MG TABLET PO SCH (09:24)
[2020-08-24 10:29] VITALS: BP 102/82
[2020-08-24 16:00] VITALS: BP 100/51
[2020-08-25 08:00] VITALS: BP 111/69
[2020-08-25] MEDS: DIVALPROEX SODIUM 500 MG DR TABLET PO SCH ×2 (08:36→20:52)
[2020-08-25] MEDS: SERTRALINE HCL 100 MG TABLET PO SCH (08:36)
[2020-08-25] MEDS: QUEtiapine FUMARATE 200 MG TABLET PO SCH ×2 (08:37→20:52)
[2020-08-25 16:00] VITALS: BP 98/57
[2020-08-25] MEDS: ZOLPIDEM TARTRATE 10 MG TABLET PO PRN (21:36)
[2020-08-26] MEDS: HALOPERIDOL 5 MG TABLET PO PRN (07:06)
[2020-08-26] MEDS: LORazepam 2 MG TABLET PO PRN (07:06)
[2020-08-26] MEDS: DIVALPROEX SODIUM 500 MG DR TABLET PO SCH ×2 (09:11→20:11)
[2020-08-26] MEDS: SERTRALINE HCL 100 MG TABLET PO SCH (09:12)
[2020-08-26] MEDS: QUEtiapine FUMARATE 200 MG TABLET PO SCH ×2 (09:12→20:10)
[2020-08-26 09:15] VITALS: BP 104/54
[2020-08-26 16:00] VITALS: BP 82/48
[2020-08-27 08:00] VITALS: BP 108/59
[2020-08-27] MEDS: DIVALPROEX SODIUM 500 MG DR TABLET PO SCH ×2 (08:06→21:11)
[2020-08-27] MEDS: SERTRALINE HCL 100 MG TABLET PO SCH (08:07)
[2020-08-27] MEDS: QUEtiapine FUMARATE 200 MG TABLET PO SCH ×2 (08:08→21:11)
[2020-08-27 16:00] VITALS: BP 117/76
[2020-08-28] MEDS: QUEtiapine FUMARATE 200 MG TABLET PO SCH (08:29)
[2020-08-28] MEDS: DIVALPROEX SODIUM 500 MG DR TABLET PO SCH (08:29)
[2020-08-28] MEDS: SERTRALINE HCL 100 MG TABLET PO SCH (08:30)
[2020-08-28 17:02] VITALS: BP 96/84
== END 2020-08-28 18:50 | disposition left against medical advice (07) | DRG 885 ==
LOC: EMS 19:06 → 3EX 22:01
PROVIDERS: ADMIT Psychiatry & Neurology Psychiatry; ATTEND Psychiatry & Neurology Psychiatry
DX: F25.1 Schizoaffective disorder, depressive type (principal); R45.851 Suicidal ideations; L03.90 Cellulitis, unspecified; Z59.0 Homelessness; Z91.5 Personal history of self-harm; L01.00 Impetigo, unspecified; J45.909 Unspecified asthma, uncomplicated; F17.200 Nicotine dependence, unspecified, uncomplicated; F12.90 Cannabis use, unspecified, uncomplicated; F90.9 Attention-deficit hyperactivity disorder, unspecified type; Z20.828 Contact with and (suspected) exposure to other viral communicable diseases; Z53.29 Procedure and treatment not carried out because of patient's decision for other reasons
CPT/HCPCS: 87081; 87426; G0378; G0480

== ENCOUNTER 2020-12-24 08:24 | Inpatient (IN) | payer MEDICARE ==
[~2020-12-24] VITALS: Ht 172.7 cm; Wt 72.3 kg
[2020-12-24 09:07] LABS: BASOPHILS % (AUTO) 0.6 % (0.0-2.0); EOSINOPHILS % (AUTO) 1.9 % (1.0-6.0); HEMATOCRIT 41.8 % (41-53); HEMOGLOBIN 13.8 g/dL (13.5-17.5); LYMPHOCYTES # (AUTO) 1.9 K/uL (1.0-4.8); LYMPHOCYTES % (AUTO) 28.9 % (22.0-44.0); MEAN CORPUSCULAR HEMOGLOBIN 30.4 pg (26.0-34.0); MEAN CORPUSCULAR VOLUME 92 fL (80-100); MONOCYTES # (AUTO) 0.5 K/uL (0.1-1.0); MONOCYTES % (AUTO) 8.2 % (2.0-9.0); NEUTROPHILS % (AUTO) 60.4 % (40.0-70.0); PLATELET COUNT (AUTO) 220 K/uL (150-450); RED BLOOD CELL COUNT(AUTO) 4.54 MIL/uL (4.50-5.90); RED CELL DISTRIBUTION WIDTH 13.1 % (11.5-14.5)
[2020-12-24 09:16] LABS: ANION GAP 10 mmol/L (8-16); CALCIUM, TOTAL 8.9 mg/dL (8.8-10.5); CARBON DIOXIDE 28 mmol/L (22-29); CHLORIDE 106 mmol/L (98-107); GLOMERULAR FILTR. RATE CALC > 60 mL/min (>60); GLUCOSE,RANDOM 87 mg/dL (70-110); POTASSIUM 3.4 mmol/L (3.5-5.1); SODIUM SERUM 144 mmol/L (136-145); UREA NITROGEN, BLOOD 23 mg/dL (7-18)
[2020-12-24 09:22] LABS: ALANINE AMINOTRANSFERASE 24 U/L (12-78); ALKALINE PHOSPHATASE 70 U/L (46-116); ASPARTATE AMINOTRANSFERASE 16 U/L (15-37); BILIRUBIN,TOTAL 0.9 mg/dL (0.1-1.0); TOTAL PROTEIN, SERUM 7.5 g/dL (6.4-8.2)
[2020-12-24] MEDS ORDERED: LORazepam 1 MG TABLET PO ONE (09:30)
[2020-12-24] MEDS ORDERED: ZOLPIDEM TARTRATE 10 MG TABLET PO PRN (10:45)
[2020-12-24 11:16] LABS: COVID AG,FIA SOURCE NASOPHARYNGEAL
[2020-12-24] MEDS ORDERED: POTASSIUM CHLORIDE 10 MEQ ER TABLET PO ONE (14:30)
[2020-12-24] MEDS ORDERED: INFLUENZA VIRUS VACCINE QVS 2020-21 (6MO+)/PF 60 MCG/0.5 ML SYRINGE IM ONE (14:45)
[2020-12-24] MEDS ORDERED: -PHARMACY VACCINE NOTE- MISC ONE (14:45)
[2020-12-24 16:20] VITALS: BP 104/65
[2020-12-24] MEDS: HALOPERIDOL 5 MG TABLET PO PRN (18:17)
[2020-12-24] MEDS: LORazepam 2 MG TABLET PO PRN (18:18)
[2020-12-24] MEDS ORDERED: DENTURE ADHESIVE 68 GM CREAM DT PRN (19:15)
[2020-12-25 00:30] VITALS: BP 100/67
[2020-12-25 08:15] LABS: CHOL/HDL RATIO 3.2 (4.2-7.3)
[2020-12-25 08:35] VITALS: BP 105/67
[2020-12-25] MEDS: NICOTINE 14 MG/24 HOUR PATCH TD SCH (08:53)
[2020-12-25] MEDS ORDERED: GuaiFENesin/D-METHORPHAN [SUGAR-FREE] 200-20MG/10 ML SYRUP UDCUP PO PRN (09:00)
[2020-12-25] MEDS ORDERED: MAGNESIUM HYDROXIDE SUSPENSION 30 ML UDCUP PO PRN (09:00)
[2020-12-25] MEDS ORDERED: LOPERAMIDE HCL 2 MG CAPSULE PO PRN (09:00)
[2020-12-25] MEDS ORDERED: ALBUTEROL SULFATE HFA 90 MCG/PUFF 8 GM INHALER IH PRN (09:00)
[2020-12-25] MEDS ORDERED: MAG HYDROX/AL HYDROX/SIMETH ES 30 ML SUSPENSION UDCUP PO PRN (09:00)
[2020-12-25] MEDS ORDERED: DOCUSATE SODIUM 100 MG CAPSULE PO PRN (09:00)
[2020-12-25] MEDS ORDERED: PETROLATUM,WHITE 28 GM JELLY TP PRN (09:00)
[2020-12-25] MEDS ORDERED: ONDANSETRON HCL 4 MG TABLET PO PRN (09:00)
[2020-12-25] MEDS ORDERED: ACETAMINOPHEN 325 MG TABLET PO PRN (09:00)
[2020-12-25] MEDS ORDERED: CloNIDine HCL 0.1 MG TABLET PO PRN (09:00)
[2020-12-25] MEDS ORDERED: NICOTINE 14 MG/24 HOUR PATCH TD PRN (09:00)
[2020-12-25] MEDS: HALOPERIDOL 5 MG TABLET PO PRN (17:06)
[2020-12-25] MEDS: LORazepam 2 MG TABLET PO PRN (17:06)
[2020-12-25] MEDS: DIVALPROEX SODIUM 500 MG ER TABLET PO SCH (20:32)
[2020-12-25] MEDS: QUEtiapine FUMARATE 200 MG TABLET PO SCH (20:32)
[2020-12-26 06:30] VITALS: BP 121/77
[2020-12-26 08:32] VITALS: BP 111/72
[2020-12-26] MEDS: QUEtiapine FUMARATE 200 MG TABLET PO SCH ×2 (08:42→20:30)
[2020-12-26] MEDS: SERTRALINE HCL 100 MG TABLET PO SCH (08:42)
[2020-12-26] MEDS: DIVALPROEX SODIUM 500 MG ER TABLET PO SCH ×2 (08:43→20:30)
[2020-12-26] MEDS: NICOTINE 14 MG/24 HOUR PATCH TD SCH (08:47)
[2020-12-26 20:21] VITALS: BP 104/60
[2020-12-27 01:41] VITALS: BP 104/66
[2020-12-27 08:19] VITALS: BP 100/60
[2020-12-27 08:40] LABS: FREE T4 (FREE THYROXINE) 1.31 ng/dL (0.76-1.46); POTASSIUM 4.4 mmol/L (3.5-5.1)
[2020-12-27] MEDS: DIVALPROEX SODIUM 500 MG ER TABLET PO SCH (08:57)
[2020-12-27] MEDS: SERTRALINE HCL 100 MG TABLET PO SCH (08:58)
[2020-12-27] MEDS: QUEtiapine FUMARATE 200 MG TABLET PO SCH (08:59)
[2020-12-27] MEDS: NICOTINE 14 MG/24 HOUR PATCH TD SCH (08:59)
[2020-12-27] MEDS ORDERED: DIVA-80 PO (14:02)
[2020-12-27] MEDS ORDERED: QUET300T2 PO (14:03)
[2020-12-27] MEDS ORDERED: SERT-162 PO (14:04)
== END 2020-12-27 16:05 | disposition home or self-care (01) | DRG 885 ==
LOC: EMS 08:24 → B2S 11:30
DX: F25.0 Schizoaffective disorder, bipolar type (principal); R45.851 Suicidal ideations; F15.10 Other stimulant abuse, uncomplicated; F12.10 Cannabis abuse, uncomplicated; Z20.822 Contact with and (suspected) exposure to COVID-19; E87.6 Hypokalemia; F10.10 Alcohol abuse, uncomplicated; J45.909 Unspecified asthma, uncomplicated; F41.9 Anxiety disorder, unspecified; F90.9 Attention-deficit hyperactivity disorder, unspecified type; F17.210 Nicotine dependence, cigarettes, uncomplicated; Z79.899 Other long term (current) drug therapy; Z88.6 Allergy status to analgesic agent; Z23 Encounter for immunization; Z59.0 Homelessness
CPT/HCPCS: 84132; 84439; 84443; 87081; 87426; 99285; G0480

== ENCOUNTER 2022-06-21 06:11 | Emergency (ER) | payer MEDICARE ==
[~2022-06-21] VITALS: Ht 177.8 cm; Wt 75.0 kg
[~2022-06-21 06:11] MED LIST changes: -CEPH-582 PO; -DIVA-112 PO; +DIVA-80 PO; -QUET200T PO; +QUET300T2 PO; +SERT-162 PO; -SERT100T12 PO
[2022-06-21] MEDS ORDERED: DOXYCYCLINE HYCLATE 100 MG TABLET PO ONE (06:45)
[2022-06-21] MEDS ORDERED: CEPHALEXIN MONOHYDRATE 500 MG CAPSULE PO ONE (06:45)
[2022-06-21] MEDS ORDERED: QUEtiapine FUMARATE 100 MG TABLET PO ONE (06:45)
[2022-06-21] MEDS ORDERED: QUET100T PO (06:50)
[2022-06-21] MEDS ORDERED: IBUP-1554 PO (06:50)
[2022-06-21] MEDS ORDERED: CEPH-558 PO (06:50)
[2022-06-21] MEDS ORDERED: DOXY-354 PO (06:50)
[2022-06-21 07:00] VITALS: BP 111/69
== END 2022-06-21 07:19 | disposition home or self-care (01) ==
LOC: EMS 06:12
DX: L02.421 Furuncle of right axilla (principal); L02.828 Furuncle of other sites; F25.1 Schizoaffective disorder, depressive type; F31.9 Bipolar disorder, unspecified; J45.909 Unspecified asthma, uncomplicated; F17.210 Nicotine dependence, cigarettes, uncomplicated; F12.90 Cannabis use, unspecified, uncomplicated; Z59.00 Homelessness unspecified; Z88.6 Allergy status to analgesic agent
CPT/HCPCS: 99284; Z7502; Z7610

== ENCOUNTER 2022-09-11 18:19 | Emergency (ER) | payer MEDICARE ==
[~2022-09-11] VITALS: Ht 170.2 cm; Wt 72.7 kg
[~2022-09-11 18:19] MED LIST changes: +CEPH-558 PO; +DOXY-354 PO; +IBUP-1554 PO; +QUET100T PO; -QUET300T2 PO
[2022-09-11] MEDS ORDERED: DOXY-354 PO (19:15)
[2022-09-11] MEDS ORDERED: DOXYCYCLINE HYCLATE 100 MG TABLET PO ONE (19:15)
[2022-09-11] MEDS ORDERED: POVIDONE-IODINE 10% 15 ML SOLUTION UD TP ONE (19:30)
[2022-09-11] MEDS ORDERED: LIDOCAINE 1% 10 ML VIAL PERC ONE (19:30)
[2022-09-11 19:56] VITALS: BP 139/88
== END 2022-09-11 20:15 | disposition home or self-care (01) ==
LOC: EMS 19:02
DX: L02.512 Cutaneous abscess of left hand (principal); F31.9 Bipolar disorder, unspecified; F20.9 Schizophrenia, unspecified; F90.9 Attention-deficit hyperactivity disorder, unspecified type; F17.210 Nicotine dependence, cigarettes, uncomplicated; F12.90 Cannabis use, unspecified, uncomplicated; J45.909 Unspecified asthma, uncomplicated; Z88.6 Allergy status to analgesic agent
CPT/HCPCS: 99283; 10060; J3490